=== PATIENT | female | born 1960 | race Caucasian/White ===

== ENCOUNTER 2016-09-30 21:33 | Emergency (ER) | payer OTHER ==
[2016-09-30] MEDS ORDERED: Albuterol/Ipratropium 3.0-0.5 MG/3 ML Neb Soln NEB ONE (21:52)
--- NOTE | 2016-09-30 21:59 | EDM.PDOC ---
ED HISTORY OF PRESENT ILLNESS - General Stated Complaint: Cough Time Seen by Provider: 09/30/16 21:51 Source of Information: Reports: Patient History Limitations: Reports: No limitations - History of Present Illness INITIAL COMMENTS - FREE TEXT/NARRATIVE: Patient states that she has had a cough for the past 3 months that is not improving. She is an everyday smoker and has been for more than 40 years. She denies fever, chills, SOB, and chest pain. She is also complaining of depression and is tearful during conversations with her about why. She states her boyfriend who was the love of her life two weeks ago. She has not really spoken to anyone about this. She denies wanting to hurt herself or anyone else. She states that she has chronic depression but doesn't see anyone for this. 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 - Related Data Allergies/ADRs: Allergies Allergy/AdvReac Type Severity Reaction Status Date / Time No Known Allergies Allergy Verified 02/11/16 05:58 Home Meds: Home Meds Albuterol/Ipratropium [Combivent Respimat] 4 gm IH ASDIRECTED PRN 02/11/16 [ History] Ciprofloxacin [Ciprofloxacin HCl] 500 mg PO BID #20 tablet 02/11/16 [Rx] Past Medical History Respiratory History: Reports: COPD Genitourinary History: Reports: UTI, recurrent Social & Family History - Tobacco Use Smoking Status *Q: Current Every Day Smoker Tobacco Use Within Last Twelve Months: Cigarettes Years of Tobacco use: 43 Packs/Tins Daily: 1 Smoking Cessation Information Provided To Patient: Patient Refused - Alcohol Use Days Per Week of Alcohol Use: 4 Number of Drinks Per Day: 4 Total Drinks Per Week: 16 Date of Last Drink: 09/30/16 Time of Last Drink: 21:00 Alcohol Use in Last Twelve Months: Yes Alcohol Use Frequency: Daily ED ROS GENERAL - Review of Systems Review Of Systems: ROS reveals no pertinent complaints other than HPI. Constitutional: Reports: no symptoms HEENT: Reports: No symptoms Respiratory: Reports: wheezing, cough, sputum Cardiovascular: Reports: No symptoms Endocrine: Reports: fatigue GI/Abdominal: Reports: No symptoms : Reports: no symptoms Musculoskeletal: Reports: no symptoms Skin: Reports: no symptoms Neurological: Reports: no symptoms Psychiatric: Reports: Depression Hematologic/Lymphatic: Reports: no symptoms Immunologic: Reports: no symptoms ED EXAM, GENERAL - Physical Exam Exam: See Below Exam Limited By: No limitations General Appearance: alert, WD/WN, mild distress (sad and tearful) Head: atraumatic, normocephalic Neck: normal inspection, supple, non-tender, full range of motion Respiratory/Chest: no respiratory distress, no accessory muscle use, chest non- tender, crackles, wheezing, prolonged expiration Cardiovascular: normal peripheral pulses, regular rate, rhythm, no edema, no murmur, no rub GI/Abdominal: normal bowel sounds, soft, non tender, no distention Back Exam: normal inspection Extremities: normal inspection, no pedal edema, normal capillary refill Neurological: alert, oriented, normal cognition Psychiatric: depressed mood, tearful Skin Exam: Warm, Dry, Intact, Normal color, No rash Lymphatic: no adenopathy ED RESPIRATORY PROCEDURES - Additional/Other Procedure(s) Other (Free Text) Procedure(s): CXR shows no pneumonia or other worrisome findings. Course - Orders/Labs/Meds Orders: Active Orders 24 hr Category Date Time Status RT Aerosol Therapy [RC] ASDIRECTED Care 09/30/16 21:52 Ordered CXR [Chest 2V] [CR] Stat Exams 09/30/16 21:52 Ordered Meds: Medications Discontinued Medications Generic Name Dose Route Start Last Admin Trade Name Stephanie PRN Reason Stop Dose Admin Albuterol/Ipratropium 3 ml 09/30/16 21:52 Duoneb 3.0-0.5 Mg/3 Ml NEB 09/30/16 21:53 ONETIME ONE - Re-Assessments/Exams Free Text/Narrative Re-Assessment/Exam: 09/30/16 22:11 Lung sounds clear bilaterally A&P throughout all lung villanueva after nebulizer treatment. Departure - Departure Time of Disposition: 22:20 Disposition: Home, Self-Care 01 Condition: good Clinical Impression: Cough in adult Instructions: Smoking Cessation, Tips for Success, [id number]-[id number] Additional Instructions: Follow up with your primary care provider for further treatment and management of your depression. Quit smoking. Do not drink alcohol if you struggle with depression as this will make the condition worse and much harder to treat and manage. - My Orders Last 24 Hours: My Active Orders 09/30/16 21:52 RT Aerosol Therapy [RC] ASDIRECTED CXR [Chest 2V] [CR] Stat - Assessment/Plan Last 24 Hours: My Active Orders 09/30/16 21:52 RT Aerosol Therapy [RC] ASDIRECTED CXR [Chest 2V] [CR] Stat Assessment:: Cough/chronic bronchitis Plan: Follow up with your primary care provider for further treatment and management of your depression. Quit smoking. Do not drink alcohol if you struggle with depression as this will make the condition worse and much harder to treat and manage.
[2016-09-30 23:04] VITALS: BP 102/64
== END 2016-09-30 22:35 | disposition home or self-care (01) ==
LOC: VM.ED 21:33
DX: R05 Cough (principal); J44.9 Chronic obstructive pulmonary disease, unspecified; F17.210 Nicotine dependence, cigarettes, uncomplicated
CPT/HCPCS: 71020; 94640; 99284

== ENCOUNTER 2017-05-03 15:31 | Emergency (ER) | payer MEDICAID, OTHER ==
[2017-05-03] MEDS ORDERED: LORazepam 2 MG/ML SDV IVPUSH ONE (15:49)
[2017-05-03] MEDS ORDERED: Sodium Chloride 0.9% 10 ML Syringe FLUSH PRN (15:49)
[2017-05-03] MEDS ORDERED: Sodium Chloride 0.9% 1,000 ML IV ONE (15:49)
--- NOTE | 2017-05-03 16:00 | EDM.PDOC ---
ED HPI GENERAL MEDICAL PROBLEM - General Chief Complaint: Chest Pain Stated Complaint: chest pain Time Seen by Provider: 05/03/17 15:45 Source of Information: Reports: Patient, EMS History Limitations: Reports: No Limitations - History of Present Illness INITIAL COMMENTS - FREE TEXT/NARRATIVE: Patient arrives with sudden onset of right sided chest pain that worsens on palpation. She is brought in via ambulance. Denies SOB, any LOC. She denies nausea, vomiting, blood in urine or stools. Has long standing history of anxiety. Smokes 1/2 PPD. History of alcoholism. Onset: Today, Sudden Duration: Intermittent Location: Reports: Chest Quality: Reports: Ache Severity: Moderate Improves with: Reports: None Worsens with: Reports: Movement Associated Symptoms: Reports: Chest Pain Right Chest Pain Score (Numeric/FACES): 2 - Related Data Allergies Allergy/AdvReac Type Severity Reaction Status Date / Time codeine Allergy Nausea and Verified 05/03/17 15:43 Vomiting lidocaine Allergy Swelling Verified 05/03/17 15:43 Home Meds: Home Meds . [No Known Home Meds] 09/30/16 [History] Past Medical History Respiratory History: Reports: COPD Genitourinary History: Reports: UTI, Recurrent Psychiatric History: Reports: Anxiety, Depression, PTSD Social & Family History - Family History Family Medical History: Noncontributory - Tobacco Use Smoking Status *Q: Current Every Day Smoker Years of Tobacco use: 45 Packs/Tins Daily: 0.5 - Caffeine Use Caffeine Use: Reports: Soda - Alcohol Use Days Per Week of Alcohol Use: 4 Number of Drinks Per Day: 4 Total Drinks Per Week: 16 - Recreational Drug Use Recreational Drug Use: No ED ROS GENERAL - Review of Systems Review Of Systems: See Below Constitutional: Reports: No Symptoms HEENT: Reports: No Symptoms Respiratory: Reports: No Symptoms Cardiovascular: Reports: Chest Pain Endocrine: Reports: No Symptoms GI/Abdominal: Reports: No Symptoms : Reports: No Symptoms Musculoskeletal: Reports: No Symptoms Skin: Reports: No Symptoms Neurological: Reports: No Symptoms Psychiatric: Reports: No Symptoms Hematologic/Lymphatic: Reports: No Symptoms Immunologic: Reports: No Symptoms ED EXAM, GENERAL - Physical Exam Exam: See Below Exam Limited By: No Limitations General Appearance: Alert, WD/WN, Moderate Distress Eye Exam: Bilateral Eye: EOMI, PERRL Ears: Normal TMs Nose: Normal Inspection, Normal Mucosa, No Blood Throat/Mouth: Normal Inspection, Normal Lips, Normal Teeth, Normal Gums, Normal Oropharynx, Normal Voice, No Airway Compromise Head: Atraumatic, Normocephalic Neck: Normal Inspection, Supple, Non-Tender, Full Range of Motion Respiratory/Chest: No Respiratory Distress, Lungs Clear, Normal Breath Sounds, No Accessory Muscle Use, Chest Non-Tender Cardiovascular: Normal Peripheral Pulses, Regular Rate, Rhythm, No Edema, No Gallop, No JVD, No Murmur, No Rub GI/Abdominal: Normal Bowel Sounds, Soft, Non-Tender, No Organomegaly, No Distention, No Abnormal Bruit, No Mass Extremities: Normal Inspection, Normal Range of Motion, Non-Tender, Normal Capillary Refill, No Pedal Edema Neurological: Alert, Oriented, CN II-XII Intact, Normal Cognition, Normal Gait, Normal Reflexes, No Motor/Sensory Deficits Psychiatric: Normal Affect, Normal Mood Skin Exam: Warm, Dry, Intact, Normal Color, No Rash Lymphatic: No Adenopathy EKG INTERPRETATION EKG Date: 05/03/17 Time: 15:39 Rhythm: NSR Rate (Beats/Min): 81 [place]: Normal P-Wave: Present QRS: Normal ST-T: Normal QT: Normal Comparison: NA - No Prior EKG Course - Vital Signs Last Recorded V/S: Last Vital Signs Temp 36.1 C 05/03/17 18:39 Pulse 73 05/03/17 18:39 Resp 18 05/03/17 18:39 BP 118/74 05/03/17 18:39 Pulse Ox 99 05/03/17 18:39 - Orders/Labs/Meds Orders: Active Orders 24 hr Category Date Time Status EKG Documentation Completion [RC] ROUTINE Care 05/03/17 15:49 Ordered Chest 1V Frontal [CR] Stat Exams 05/03/17 15:49 Taken Chest PE [Ang Chest] [CT] Stat Exams 05/03/17 17:14 Taken Saline Lock Insert [OM.PC] Routine Oth 05/03/17 15:49 Ordered Labs: Laboratory Tests 05/03/17 05/03/17 05/03/17 Range/Units 16:00 16:15 16:15 WBC 7.9 (4.0-10.0) x10^3/uL RBC 4.29 (4.00-5.50) x10^6/uL Hgb 14.1 (12.0-16.0) g/dL Hct 40.2 (33.0-47.0) % MCV 93.7 H (78.0-93.0) fL MCH 32.9 H (26.0-32.0) pg MCHC 35.1 (32.0-36.0) g/dL RDW Coeff of Crys 13.1 (10.0-15.0) % Plt Count 261 (130-400) x10^3/uL Neut % (Auto) 67.0 (50.0-80.0) % Lymph % (Auto) 24.3 L (25.0-50.0) % Wilkin % (Auto) 6.6 (2.0-11.0) % Eos % (Auto) 1.6 (0.0-4.0) % Baso % (Auto) 0.5 (0.2-1.2) % PT 10.0 (9.8-11.8) SEC INR 0.9 L (2.0-3.5) D-Dimer, Quantitative (<=0.58) mg/LFEU Sodium (136-145) mmol/L Potassium (3.5-5.1) mmol/L Chloride (98-107) mmol/L Carbon Dioxide (21-32) mmol/L BUN (7-18) mg/dL Creatinine (0.55-1.02) mg/dL Est Cr Clr Drug Dosing mL/min Estimated GFR (MDRD) Glucose (74-106) mg/dL Lactic Acid (0.4-2.0) mmol/L Calcium (8.5-10.1) mg/dL Corrected Calcium (8.5-10.1) mg/dL Total Bilirubin (0.2-1.0) mg/dL AST (15-37) U/L ALT (14-59) U/L Alkaline Phosphatase (46-116) U/L Creatine Kinase (26-192) U/L Creatine Kinase Index CK-MB (CK-2) Troponin I (<=0.056) ng/mL C-Reactive Protein (<=0.9) mg/dL NT-Pro-B Natriuret Pep (<=125) pg/mL Total Protein (6.4-8.2) g/dL Albumin (3.4-5.0) g/dL Globulin Albumin/Globulin Ratio TSH, Ultra Sensitive (0.358-3.74) uIU/mL Urine Color Yellow (YELLOW) Urine Appearance Slightly cloudy H (CLEAR) Urine pH 9.0 H (5.0-8.0) Ur Specific Grimsley 1.015 Urine Protein 30 H (NEGATIVE) mg/dL Urine Glucose (UA) Negative (NEGATIVE) mg/dL Urine Ketones Trace H (NEGATIVE) mg/dL Urine Occult Blood Negative (NEGATIVE) Urine Nitrite Negative (NEGATIVE) Urine Bilirubin Small H (NEGATIVE) Urine Urobilinogen 2.0 H (0.2) EU/dL Ur Leukocyte Esterase Negative (NEGATIVE) Urine RBC 0-5 (NOT SEEN) /HPF Urine WBC 0-5 (NOT SEEN) /HPF Ur Squamous Epith Cells Few H (NEGATIVE) /HPF Urine Bacteria Few H (NEGATIVE) /HPF Urine Mucus Rare H (NEGATIVE) /LPF 05/03/17 05/03/17 05/03/17 Range/Units 16:15 16:15 16:15 WBC (4.0-10.0) x10^3/uL RBC (4.00-5.50) x10^6/uL Hgb (12.0-16.0) g/dL Hct (33.0-47.0) % MCV (78.0-93.0) fL MCH (26.0-32.0) pg MCHC (32.0-36.0) g/dL RDW Coeff of Crys (10.0-15.0) % Plt Count (130-400) x10^3/uL Neut % (Auto) (50.0-80.0) % Lymph % (Auto) (25.0-50.0) % Wilkin % (Auto) (2.0-11.0) % Eos % (Auto) (0.0-4.0) % Baso % (Auto) (0.2-1.2) % PT (9.8-11.8) SEC INR (2.0-3.5) D-Dimer, Quantitative 1.39 H (<=0.58) mg/LFEU Sodium 136 (136-145) mmol/L Potassium 3.1 L (3.5-5.1) mmol/L Chloride 98 (98-107) mmol/L Carbon Dioxide 27 (21-32) mmol/L BUN 10 (7-18) mg/dL Creatinine 0.7 (0.55-1.02) mg/dL Est Cr Clr Drug Dosing 66.91 mL/min Estimated GFR (MDRD) > 60 Glucose 117 H (74-106) mg/dL Lactic Acid 2.1 H (0.4-2.0) mmol/L Calcium 9.5 (8.5-10.1) mg/dL Corrected Calcium 9.90 (8.5-10.1) mg/dL Total Bilirubin 0.8 (0.2-1.0) mg/dL AST 61 H (15-37) U/L ALT 89 H (14-59) U/L Alkaline Phosphatase 95 (46-116) U/L Creatine Kinase 51 (26-192) U/L Creatine Kinase Index TNP CK-MB (CK-2) TNP Troponin I < 0.017 (<=0.056) ng/mL C-Reactive Protein (<=0.9) mg/dL NT-Pro-B Natriuret Pep 66 (<=125) pg/mL Total Protein 6.5 (6.4-8.2) g/dL Albumin 3.5 (3.4-5.0) g/dL Globulin 3.0 Albumin/Globulin Ratio 1.17 TSH, Ultra Sensitive 1.411 (0.358-3.74) uIU/mL Urine Color (YELLOW) Urine Appearance (CLEAR) Urine pH (5.0-8.0) Ur Specific [place] Urine Protein (NEGATIVE) mg/dL Urine Glucose (UA) (NEGATIVE) mg/dL Urine Ketones (NEGATIVE) mg/dL Urine Occult Blood (NEGATIVE) Urine Nitrite (NEGATIVE) Urine Bilirubin (NEGATIVE) Urine Urobilinogen (0.2) EU/dL Ur Leukocyte Esterase (NEGATIVE) Urine RBC (NOT SEEN) /HPF Urine WBC (NOT SEEN) /HPF Ur Squamous Epith Cells (NEGATIVE) /HPF Urine Bacteria (NEGATIVE) /HPF Urine Mucus (NEGATIVE) /LPF 05/03/17 Range/Units 16:15 WBC (4.0-10.0) x10^3/uL RBC (4.00-5.50) x10^6/uL Hgb (12.0-16.0) g/dL Hct (33.0-47.0) % MCV (78.0-93.0) fL MCH (26.0-32.0) pg MCHC (32.0-36.0) g/dL RDW Coeff of Crys (10.0-15.0) % Plt Count (130-400) x10^3/uL Neut % (Auto) (50.0-80.0) % Lymph % (Auto) (25.0-50.0) % Wilkin % (Auto) (2.0-11.0) % Eos % (Auto) (0.0-4.0) % Baso % (Auto) (0.2-1.2) % PT (9.8-11.8) SEC INR (2.0-3.5) D-Dimer, Quantitative (<=0.58) mg/LFEU Sodium (136-145) mmol/L Potassium (3.5-5.1) mmol/L Chloride (98-107) mmol/L Carbon Dioxide (21-32) mmol/L BUN (7-18) mg/dL Creatinine (0.55-1.02) mg/dL Est Cr Clr Drug Dosing mL/min Estimated GFR (MDRD) Glucose (74-106) mg/dL Lactic Acid (0.4-2.0) mmol/L Calcium (8.5-10.1) mg/dL Corrected Calcium (8.5-10.1) mg/dL Total Bilirubin (0.2-1.0) mg/dL AST (15-37) U/L ALT (14-59) U/L Alkaline Phosphatase (46-116) U/L Creatine Kinase (26-192) U/L Creatine Kinase Index CK-MB (CK-2) Troponin I (<=0.056) ng/mL C-Reactive Protein 0.7 (<=0.9) mg/dL NT-Pro-B Natriuret Pep (<=125) pg/mL Total Protein (6.4-8.2) g/dL Albumin (3.4-5.0) g/dL Globulin Albumin/Globulin Ratio TSH, Ultra Sensitive (0.358-3.74) uIU/mL Urine Color (YELLOW) Urine Appearance (CLEAR) Urine pH (5.0-8.0) Ur Specific [place] Urine Protein (NEGATIVE) mg/dL Urine Glucose (UA) (NEGATIVE) mg/dL Urine Ketones (NEGATIVE) mg/dL Urine Occult Blood (NEGATIVE) Urine Nitrite (NEGATIVE) Urine Bilirubin (NEGATIVE) Urine Urobilinogen (0.2) EU/dL Ur Leukocyte Esterase (NEGATIVE) Urine RBC (NOT SEEN) /HPF Urine WBC (NOT SEEN) /HPF Ur Squamous Epith Cells (NEGATIVE) /HPF Urine Bacteria (NEGATIVE) /HPF Urine Mucus (NEGATIVE) /LPF Meds: Medications Discontinued Medications Generic Name Dose Route Start Last Admin Trade Name Freq PRN Reason Stop Dose Admin Sodium Chloride 1,000 mls @ 999 mls/hr 05/03/17 15:49 05/03/17 16:03 Normal Saline IV 05/03/17 16:49 999 mls/hr ONETIME ONE Administration Sodium Chloride 100 mls @ 3 mls/sec 05/03/17 18:00 05/03/17 18:05 Normal Saline IV 3 mls/sec ASDIRECTED MARCELLO Administration Iopamidol 100 ml 05/03/17 17:50 05/03/17 18:05 Isovue-300 (61%) IVPUSH 05/03/17 17:51 100 ml ONETIME ONE Administration Lorazepam 0.5 mg 05/03/17 15:49 05/03/17 16:03 Ativan IVPUSH 05/03/17 15:50 0.5 mg ONETIME ONE Administration Sodium Chloride 10 ml 05/03/17 15:49 Saline Flush FLUSH ASDIRECTED PRN Keep Vein Open - Re-Assessments/Exams Free Text/Narrative Re-Assessment/Exam: 05/03/17 22:41 Patient discharged with anxiety related diagnosis. D-Dimer elevated, chronic smoker, alcoholic. No history of cardiac related illnesses. No prior CVA. Departure - Departure Time of Disposition: 19:30 Disposition: Home, Self-Care 01 Condition: Good Clinical Impression: Atypical chest pain, Costochondral chest pain, Cough in adult Instructions: Nonspecific Chest Pain, [id number] Referrals: Sb Bell PA-C [Primary Care Provider] - Forms: ED Department Discharge Additional Instructions: Follow up with your primary doctor as needed for symptom management. Stay well hydrated. Your labwork and diagnostic tests were negative for any acute illness. Visit with your provider as to whether or not you need some medication for anxiety and/or depression. This does appear to be a muscular complaint. Try a heating pad, soak in a warm bath, taking ibuprofen or tylenol. - Problem List & Annotations (1) Atypical chest pain SNOMED Code(s): 708030274 Code(s): R07.89 - OTHER CHEST PAIN Status: Acute Priority: Low (2) Costochondral chest pain SNOMED Code(s): 740913748 Code(s): R07.1 - CHEST PAIN ON BREATHING Status: Acute Priority: Low - Problem List Review Problem List Initiated/Reviewed/Updated: Yes - My Orders Last 24 Hours: My Active Orders 05/03/17 15:49 EKG Documentation Completion [RC] ROUTINE Chest 1V Frontal [CR] Stat Saline Lock Insert [OM.PC] Routine 05/03/17 17:14 Chest PE [Ang Chest] [CT] Stat - Assessment/Plan Last 24 Hours: My Active Orders 05/03/17 15:49 EKG Documentation Completion [RC] ROUTINE Chest 1V Frontal [CR] Stat Saline Lock Insert [OM.PC] Routine 05/03/17 17:14 Chest PE [Ang Chest] [CT] Stat Assessment:: costochondritis atypical chest pain Plan: Follow up with your primary doctor as needed for symptom management. Stay well hydrated. Your labwork and diagnostic tests were negative for any acute illness. Visit with your provider as to whether or not you need some medication for anxiety and/or depression. This does appear to be a muscular complaint. Try a heating pad, soak in a warm bath, taking ibuprofen or tylenol.
[2017-05-03 16:58] LABS: CHLORIDE,CL 98 mmol/L (98-107); SODIUM,NA 136 mmol/L (136-145)
[2017-05-03] MEDS ORDERED: Iopamidol 612 MG/ML 100 ML Bottle IVPUSH ONE (17:50)
[2017-05-03] MEDS ORDERED: Sodium Chloride 0.9% 100 ML IV SCH (18:00)
== END 2017-05-03 19:35 | disposition home or self-care (01) ==
LOC: VM.ED 15:31
DX: R07.1 Chest pain on breathing (principal); R05 Cough; F17.210 Nicotine dependence, cigarettes, uncomplicated; J44.9 Chronic obstructive pulmonary disease, unspecified; F32.9 Major depressive disorder, single episode, unspecified; Z88.5 Allergy status to narcotic agent; Z88.6 Allergy status to analgesic agent
CPT/HCPCS: 36415; 71010; 71275; 80053; 81001; 82550; 83605; 83880; 84443; 84484; 85025; 85379; 85610; 86140; 93005; 96361; 96374; 99285; J2060; J7030; J7050; Q9967

== ENCOUNTER 2018-01-20 22:38 | Emergency (ER) | payer MEDICAID | END 2018-01-20 22:50 | disposition left against medical advice (07) | LOC: VM.ED 22:38 | DX: Z53.21 Procedure and treatment not carried out due to patient leaving prior to being seen by health care provider (principal) ==

== ENCOUNTER 2018-03-04 02:40 | Observation (INO) | payer MEDICAID ==
[2018-03-04] MEDS ORDERED: Sodium Chloride 0.9% 10 ML Syringe FLUSH PRN (03:22)
[2018-03-04] MEDS ORDERED: Sodium Chloride 0.9% 1,000 ML IV SCH (03:30)
[2018-03-04 04:03] LABS: CHLORIDE,CL 109 mmol/L (98-107); SODIUM,NA 145 mmol/L (136-145)
[2018-03-04] MEDS ORDERED: Nitrofurantoin Monohydrate/Macrocrystalline 100 MG Cap PO ONE (04:03)
[2018-03-04 04:04] LABS: ANION GAP 17.7 mmol/L (10-20)
[2018-03-04] MEDS ORDERED: Iopamidol 612 MG/ML 100 ML Bottle IVPUSH ONE (04:17)
--- NOTE | 2018-03-04 04:23 | EDM.PDOC ---
ED HPI GENERAL MEDICAL PROBLEM - General Chief Complaint: Abdominal Pain Stated Complaint: Left groin pain Time Seen by Provider: 03/04/18 03:17 Source of Information: Reports: Patient, EMS History Limitations: Reports: No Limitations - History of Present Illness INITIAL COMMENTS - FREE TEXT/NARRATIVE: Patient is brought in this morning via EMS with complaints of lower left abdominal pain and diarrhea. She states the abdominal pain started on Friday after she was moving a couch and has only become worse. Rates pain a 9/10. Pain increases with movement and palpation. She has been drinking this evening. She denies headache, chest pain, chest pressure, blood in urine or stool. She denies any problems with bowel or bladder. She states she had 4 drinks tonight. Onset: Gradual Onset Date: 02/28/18 Duration: Getting Worse Location: Reports: Abdomen, Lower Extremity, Left Quality: Reports: Ache, Stabbing Severity: Mild Worsens with: Reports: Movement Associated Symptoms: Reports: No Other Symptoms left groin Pain Score (Numeric/FACES): 3 Low mid abdomen Pain Score (Numeric/FACES): 5 - Related Data Allergies Allergy/AdvReac Type Severity Reaction Status Date / Time codeine Allergy Nausea and Verified 03/04/18 02:51 Vomiting lidocaine Allergy Swelling Verified 03/04/18 02:51 Home Meds: Home Meds ClonazePAM [KlonoPIN] 0.5 mg PO BID PRN 03/04/18 [History] Past Medical History Respiratory History: Reports: COPD Genitourinary History: Reports: UTI, Recurrent Psychiatric History: Reports: Anxiety, Depression, PTSD Social & Family History - Family History Family Medical History: Noncontributory - Caffeine Use Caffeine Use: Reports: Soda ED ROS GENERAL - Review of Systems Review Of Systems: See Below Constitutional: Reports: No Symptoms HEENT: Reports: No Symptoms Respiratory: Reports: No Symptoms Cardiovascular: Reports: No Symptoms Endocrine: Reports: No Symptoms GI/Abdominal: Reports: Abdominal Pain, Diarrhea : Reports: No Symptoms Musculoskeletal: Reports: No Symptoms, Leg Pain (right) Skin: Reports: Wound Neurological: Reports: No Symptoms Psychiatric: Reports: No Symptoms Hematologic/Lymphatic: Reports: No Symptoms Immunologic: Reports: No Symptoms ED EXAM, GI/ABD - Physical Exam Exam: See Below Text/Narrative:: Please use ER history and physical for admission H and P Exam Limited By: No Limitations General Appearance: Alert, WD/WN, Mild Distress Eyes: Bilateral: Erythema Ears: Normal External Exam, Normal Canal, Hearing Grossly Normal, Normal TMs Nose: Normal Inspection, Normal Mucosa, No Blood Throat/Mouth: Normal Inspection, Normal Lips, Normal Teeth, Normal Gums, Normal Oropharynx, Normal Voice, No Airway Compromise Head: Atraumatic, Normocephalic Neck: Normal Inspection, Supple, Non-Tender, Full Range of Motion Respiratory/Chest: No Respiratory Distress, Lungs Clear, Normal Breath Sounds, No Accessory Muscle Use, Chest Non-Tender Cardiovascular: Normal Peripheral Pulses, Regular Rate, Rhythm, No Edema, No Gallop, No JVD, No Murmur, No Rub GI/Abdominal Exam: Tender Back Exam: Normal Inspection, Full Range of Motion, NT Extremities: Normal Inspection, Normal Range of Motion, Non-Tender, Normal Capillary Refill, No Pedal Edema Neurological: Alert, Oriented, CN II-XII Intact, Normal Cognition, Normal Gait, Normal Reflexes, No Motor/Sensory Deficits Psychiatric: Normal Affect, Normal Mood Skin Exam: Warm Lymphatic: No Adenopathy Course - Vital Signs Last Recorded V/S: Last Vital Signs Temp 37.4 C 03/04/18 05:43 Pulse 100 03/04/18 05:43 Resp 16 03/04/18 05:43 BP 107/69 03/04/18 05:43 Pulse Ox 95 03/04/18 05:43 - Orders/Labs/Meds Orders: Active Orders 24 hr Category Date Time Status Abdomen Pelvis w Cont [CT] Stat Exams 03/04/18 03:29 Taken DRUG SCREEN, URINE [URCHEM] Stat Lab 03/04/18 03:45 Ordered MISC TEST Stat Lab 03/04/18 03:45 Received UA W/MICROSCOPIC [URIN] Stat Lab 03/04/18 03:45 Ordered D5 1/2 NS w/ 40 mEq/L KCl 1,000 ml Med 03/04/18 04:30 Active IV ASDIRECTED Sodium Chloride 0.9% [Normal Saline] 1,000 ml Med 03/04/18 03:30 Active IV ASDIRECTED Sodium Chloride 0.9% [Saline Flush] Med 03/04/18 03:22 Active 10 ml FLUSH ASDIRECTED PRN Saline Lock Insert [OM.PC] Routine Oth 03/04/18 03:22 Ordered Medication Orders Sodium Chloride (Normal Saline) 1,000 mls @ 999 mls/hr IV ASDIRECTED MARCELLO Last Admin: 03/04/18 03:30 Dose: 999 mls/hr Potassium Chloride/Dextrose/Sod Cl (D5 1/2 Ns W/ 40 Meq/L Kcl) 1,000 mls @ 225 mls/hr IV ASDIRECTED MARCELLO Last Admin: 03/04/18 04:58 Dose: 225 mls/hr Sodium Chloride (Saline Flush) 10 ml FLUSH ASDIRECTED PRN PRN Reason: Keep Vein Open Labs: Laboratory Tests 03/04/18 03/04/18 03/04/18 Range/Units 03:25 03:25 03:45 WBC 13.1 H (4.0-10.0) x10^3/uL RBC 4.83 (4.00-5.50) x10^6/uL Hgb 16.0 D (12.0-16.0) g/dL Hct 45.1 (33.0-47.0) % MCV 93.4 H (78.0-93.0) fL MCH 33.1 H (26.0-32.0) pg MCHC 35.5 (32.0-36.0) g/dL RDW Coeff of Crys 14.8 (10.0-15.0) % Plt Count 349 D (130-400) x10^3/uL Neut % (Auto) 68.6 (50.0-80.0) % Lymph % (Auto) 22.4 L (25.0-50.0) % [place]ue % (Auto) 6.0 (2.0-11.0) % Eos % (Auto) 2.8 (0.0-4.0) % Baso % (Auto) 0.2 (0.2-1.2) % Sodium 145 (136-145) mmol/L Potassium 2.7 L* (3.5-5.1) mmol/L Chloride 109 H (98-107) mmol/L Carbon Dioxide 21 (21-32) mmol/L Anion Gap 17.7 (10-20) mmol/L BUN 4 L (7-18) mg/dL Creatinine 0.6 (0.55-1.02) mg/dL Est Cr Clr Drug Dosing 77.12 mL/min Estimated GFR (MDRD) > 60 Glucose 122 H (74-106) mg/dL Calcium 9.1 (8.5-10.1) mg/dL Corrected Calcium 9.50 (8.5-10.1) mg/dL Total Bilirubin 0.5 (0.2-1.0) mg/dL AST 19 (15-37) U/L ALT 37 (14-59) U/L Alkaline Phosphatase 127 H (46-116) U/L Creatine Kinase 40 (26-192) U/L C-Reactive Protein 2.7 H (<=0.9) mg/dL Total Protein 7.3 (6.4-8.2) g/dL Albumin 3.5 (3.4-5.0) g/dL Globulin 3.8 Albumin/Globulin Ratio 0.92 Urine Color Yellow (YELLOW) Urine Appearance Turbid H (CLEAR) Urine pH 5.5 (5.0-8.0) Ur Specific Micro <=1.005 Urine Protein Negative (NEGATIVE) mg/dL Urine Glucose (UA) Negative (NEGATIVE) mg/dL Urine Ketones Negative (NEGATIVE) mg/dL Urine Occult Blood Negative (NEGATIVE) Urine Nitrite Positive H (NEGATIVE) Urine Bilirubin Negative (NEGATIVE) Urine Urobilinogen 1.0 (0.2) EU/dL Ur Leukocyte Esterase Small H (NEGATIVE) Urine RBC 0-5 (NOT SEEN) /HPF Urine WBC 5-10 H (NOT SEEN) /HPF Ur Squamous Epith Cells Moderate H (NEGATIVE) /HPF Urine Bacteria Many H (NEGATIVE) /HPF Hyaline Casts Few H (NEGATIVE) /HPF Urine Mucus Rare H (NEGATIVE) /LPF Urine Yeast (Budding) Few Urine Opiates Screen (NEGATIVE) Ur Buprenorphine Scrn (NEGATIVE) Ur Oxycodone Screen (NEGATIVE) Urine Methadone Screen (NEGATIVE) Ur Barbiturates Screen (NEGATIVE) Ur Tricyclics Screen (NEGATIVE) Ur Amphetamine Screen (NEGATIVE) U Methamphetamines Scrn (NEGATIVE) Urine MDMA Screen (NEGATIVE) U Benzodiazepines Scrn (NEGATIVE) U Cocaine Metab Screen (NEGATIVE) U Marijuana (THC) Screen (NEGATIVE) Ethyl Alcohol 173 H (0-3) mg/dL 03/04/18 Range/Units 03:45 WBC (4.0-10.0) x10^3/uL RBC (4.00-5.50) x10^6/uL Hgb (12.0-16.0) g/dL Hct (33.0-47.0) % MCV (78.0-93.0) fL MCH (26.0-32.0) pg MCHC (32.0-36.0) g/dL RDW Coeff of Crys (10.0-15.0) % Plt Count (130-400) x10^3/uL Neut % (Auto) (50.0-80.0) % Lymph % (Auto) (25.0-50.0) % [place] % (Auto) (2.0-11.0) % Eos % (Auto) (0.0-4.0) % Baso % (Auto) (0.2-1.2) % Sodium (136-145) mmol/L Potassium (3.5-5.1) mmol/L Chloride (98-107) mmol/L Carbon Dioxide (21-32) mmol/L Anion Gap (10-20) mmol/L BUN (7-18) mg/dL Creatinine (0.55-1.02) mg/dL Est Cr Clr Drug Dosing mL/min Estimated GFR (MDRD) Glucose (74-106) mg/dL Calcium (8.5-10.1) mg/dL Corrected Calcium (8.5-10.1) mg/dL Total Bilirubin (0.2-1.0) mg/dL AST (15-37) U/L ALT (14-59) U/L Alkaline Phosphatase (46-116) U/L Creatine Kinase (26-192) U/L C-Reactive Protein (<=0.9) mg/dL Total Protein (6.4-8.2) g/dL Albumin (3.4-5.0) g/dL Globulin Albumin/Globulin Ratio Urine Color (YELLOW) Urine Appearance (CLEAR) Urine pH (5.0-8.0) Ur Specific Micro Urine Protein (NEGATIVE) mg/dL Urine Glucose (UA) (NEGATIVE) mg/dL Urine Ketones (NEGATIVE) mg/dL Urine Occult Blood (NEGATIVE) Urine Nitrite (NEGATIVE) Urine Bilirubin (NEGATIVE) Urine Urobilinogen (0.2) EU/dL Ur Leukocyte Esterase (NEGATIVE) Urine RBC (NOT SEEN) /HPF Urine WBC (NOT SEEN) /HPF Ur Squamous Epith Cells (NEGATIVE) /HPF Urine Bacteria (NEGATIVE) /HPF Hyaline Casts (NEGATIVE) /HPF Urine Mucus (NEGATIVE) /LPF Urine Yeast (Budding) Urine Opiates Screen Negative (NEGATIVE) Ur Buprenorphine Scrn Negative (NEGATIVE) Ur Oxycodone Screen Negative (NEGATIVE) Urine Methadone Screen Negative (NEGATIVE) Ur Barbiturates Screen Negative (NEGATIVE) Ur Tricyclics Screen Negative (NEGATIVE) Ur Amphetamine Screen Negative (NEGATIVE) U Methamphetamines Scrn Negative (NEGATIVE) Urine MDMA Screen Negative (NEGATIVE) U Benzodiazepines Scrn Negative (NEGATIVE) U Cocaine Metab Screen Negative (NEGATIVE) U Marijuana (THC) Screen Positive H (NEGATIVE) Ethyl Alcohol (0-3) mg/dL Meds: Medications Generic Name Dose Route Start Last Admin Trade Name Freq PRN Reason Stop Dose Admin Sodium Chloride 1,000 mls @ 999 mls/hr 03/04/18 03:30 03/04/18 03:30 Normal Saline IV 999 mls/hr ASDIRECTED MARCELLO Administration Potassium Chloride/Dextrose/Sod Cl 1,000 mls @ 225 mls/hr 03/04/18 04:30 04:58 D5 1/2 Ns W/ 40 Meq/L Kcl IV 225 mls/hr ASDIRECTED MARCELLO Administration Sodium Chloride 10 ml 03/04/18 03:22 Saline Flush FLUSH ASDIRECTED PRN Keep Vein Open Discontinued Medications Generic Name Dose Route Start Last Admin Trade Name Freq PRN Reason Stop Dose Admin Acetaminophen 1,000 mg 03/04/18 04:49 03/04/18 04:53 Tylenol Extra Strength PO 03/04/18 04:50 1,000 mg ONETIME ONE Administration Iopamidol 100 ml 03/04/18 04:17 03/04/18 04:41 Isovue-300 (61%) IVPUSH 03/04/18 04:18 100 ml ONETIME ONE Administration Ketorolac Tromethamine 15 mg 03/04/18 05:35 03/04/18 05:42 Toradol IVPUSH 03/04/18 05:36 15 mg ONETIME ONE Administration Nitrofurantoin Macrocrystals 100 mg 03/04/18 04:03 03/04/18 04:24 Macrobid PO 03/04/18 04:04 100 mg ONETIME ONE Administration Departure - Departure Time of Disposition: 05:50 Disposition: Refer to Observation Condition: Good Clinical Impression: Hypokalemia, Left inguinal hernia UTI (urinary tract infection) Qualifiers: Encounter type: initial encounter - Discharge Information *PRESCRIPTION DRUG MONITORING PROGRAM REVIEWED*: Not Applicable *COPY OF PRESCRIPTION DRUG MONITORING REPORT IN PATIENT SAMI: Not Applicable - Problem List & Annotations (1) Hypokalemia SNOMED Code(s): 70956284 Code(s): E87.6 - HYPOKALEMIA Status: Acute Priority: Medium Current Visit: Yes Annotation/Comment:: Patient will have potassium repletion with IV Potassium, repeat potassium after infusion is complete. (2) UTI (urinary tract infection) SNOMED Code(s): 92912823 Code(s): N39.0 - URINARY TRACT INFECTION, SITE NOT SPECIFIED Status: Acute Priority: Low Current Visit: Yes Annotation/Comment:: Start Macrobid BID Qualifiers: Encounter type: initial encounter (3) Left inguinal hernia SNOMED Code(s): 413721678 Code(s): K40.90 - UNIL INGUINAL HERNIA, W/O OBST OR GANGR, NOT SPCF RECUR Status: Acute Priority: Low Current Visit: Yes - Problem List Review Problem List Initiated/Reviewed/Updated: Yes - My Orders Last 24 Hours: My Active Orders 03/04/18 03:22 Sodium Chloride 0.9% [Saline Flush] 10 ml FLUSH ASDIRECTED PRN Saline Lock Insert [OM.PC] Routine 03/04/18 03:29 Abdomen Pelvis w Cont [CT] Stat 03/04/18 03:30 Sodium Chloride 0.9% [Normal Saline] 1,000 ml IV ASDIRECTED 03/04/18 03:45 DRUG SCREEN, URINE [URCHEM] Stat MISC TEST Stat UA W/MICROSCOPIC [URIN] Stat 03/04/18 04:30 D5 1/2 NS w/ 40 mEq/L KCl 1,000 ml IV ASDIRECTED - Assessment/Plan Last 24 Hours: My Active Orders 03/04/18 03:22 Sodium Chloride 0.9% [Saline Flush] 10 ml FLUSH ASDIRECTED PRN Saline Lock Insert [OM.PC] Routine 03/04/18 03:29 Abdomen Pelvis w Cont [CT] Stat 03/04/18 03:30 Sodium Chloride 0.9% [Normal Saline] 1,000 ml IV ASDIRECTED 03/04/18 03:45 DRUG SCREEN, URINE [URCHEM] Stat MISC TEST Stat UA W/MICROSCOPIC [URIN] Stat 03/04/18 04:30 D5 / NS w/ 40 mEq/L KCl 1,000 ml IV ASDIRECTED Assessment:: hypokalemia urinary tract infection Plan: Plan 1. hypokalemia - replace potassium with IV KCL, repeat potassium lab post infusion 2. urinary tract infection - UA does show leukocytes and nitrites. Start macrobid bid, fluids, culture Plan for discharge later in the AM
[2018-03-04] MEDS ORDERED: D5 1/2 NS w/ 40 mEq/L KCl 1,000 ML IV SCH (04:30)
[2018-03-04] MEDS ORDERED: Acetaminophen 500 MG Tab PO ONE (04:49)
[2018-03-04] MEDS ORDERED: Ketorolac 15 MG/ML SDV IVPUSH ONE (05:35)
[2018-03-04] MEDS ORDERED: Acetaminophen/HYDROcodone 325-10 MG Tab PO ONE (09:43)
[2018-03-04] MEDS ORDERED: Potassium Chloride 20 MEQ Tab.ER PO ONE (10:51)
--- NOTE | 2018-03-04 11:43 | PCM.DCSUM1 ---
Discharge Summary - Hospital Course HPI Initial Comments: Patient admitted observation for hypokalemia, UTI, and pain secondary to inguinal hernia to left side. Diagnosis: Stroke: No - Discharge Data Discharge Date: 03/04/18 Discharge Disposition: Home, Self-Care 01 Condition: Stable - Discharge Diagnosis/Problem(s) (1) Hypokalemia SNOMED Code(s): 57541373 ICD Code: E87.6 - HYPOKALEMIA Status: Acute Priority: Medium Current Visit: Yes Problem Details: Patient will have potassium repletion with IV Potassium, repeat potassium after infusion is complete. (2) UTI (urinary tract infection) SNOMED Code(s): 23583083 ICD Code: N39.0 - URINARY TRACT INFECTION, SITE NOT SPECIFIED Status: Acute Priority: Low Current Visit: Yes Problem Details: Start Macrobid BID Qualifiers: Encounter type: initial encounter (3) Left inguinal hernia SNOMED Code(s): 255473896 ICD Code: K40.90 - UNIL INGUINAL HERNIA, W/O OBST OR GANGR, NOT SPCF RECUR Status: Acute Priority: Low Current Visit: Yes - Patient Summary/Data Recommended Follow-up Testing/Procedures: Stay well hydrated. Avoid any heavy lifting or straining. You have a urinary tract infection and left sided inguinal hernia, your potassium is also low. I prescribed pain medication hydrocodone 10/325 mg 1 tab q 4 hours as needed for pain and macrobid, 1 tablet twice a day for 5 days Follow up with your primary care provider this week or early next week. You may need surgical consultation for your hernia due to the pain you are having and risk for ischemic bowel. Please call if you have any additional questions or concerns. - Patient Instructions Diet: Usual Diet as Tolerated Activity: No Lifting Over 10 Pounds Driving: May Drive Today Showering/Bathing: May Shower - Discharge Plan *PRESCRIPTION DRUG MONITORING PROGRAM REVIEWED*: Not Applicable *COPY OF PRESCRIPTION DRUG MONITORING REPORT IN PATIENT SAMI: Not Applicable Home Medications: Home Meds ClonazePAM [KlonoPIN] 0.5 mg PO BID PRN 03/04/18 [History] Forms: ED Department Discharge Referrals: PCP,Unobtain [Primary Care Provider] - - Patient Data Vitals - Most Recent: Last Vital Signs Temp 36.9 C 03/04/18 10:13 Pulse 78 08/15/18 10:13 Resp 16 03/04/18 10:13 BP 114/73 03/04/18 10:13 Pulse Ox 96 03/04/18 10:13 Weight - Most Recent: 56.132 kg I&O - Last 24 hours: Intake & Output 03/03/18 03/04/18 03/04/18 22:59 06:59 14:59 Intake Total 1000 0 Output Total 700 Balance 300 0 Lab Results - Last 24 hrs: Laboratory Results - last 24 hr 03/04/18 03/04/18 03/04/18 Range/Units 03:25 03:25 03:45 WBC 13.1 H (4.0-10.0) x10^3/uL RBC 4.83 (4.00-5.50) x10^6/uL Hgb 16.0 D (12.0-16.0) g/dL Hct 45.1 (33.0-47.0) % MCV 93.4 H (78.0-93.0) fL MCH 33.1 H (26.0-32.0) pg MCHC 35.5 (32.0-36.0) g/dL RDW Coeff of Crys 14.8 (10.0-15.0) % Plt Count 349 D (130-400) x10^3/uL Neut % (Auto) 68.6 (50.0-80.0) % Lymph % (Auto) 22.4 L (25.0-50.0) % [place] % (Auto) 6.0 (2.0-11.0) % Eos % (Auto) 2.8 (0.0-4.0) % Baso % (Auto) 0.2 (0.2-1.2) % Sodium 145 (136-145) mmol/L Potassium 2.7 L* (3.5-5.1) mmol/L Chloride 109 H (98-107) mmol/L Carbon Dioxide 21 (21-32) mmol/L Anion Gap 17.7 (10-20) mmol/L BUN 4 L (7-18) mg/dL Creatinine 0.6 (0.55-1.02) mg/dL Est Cr Clr Drug Dosing 77.12 mL/min Estimated GFR (MDRD) > 60 Glucose 122 H (74-106) mg/dL Calcium 9.1 (8.5-10.1) mg/dL Corrected Calcium 9.50 (8.5-10.1) mg/dL Total Bilirubin 0.5 (0.2-1.0) mg/dL AST 19 (15-37) U/L ALT 37 (14-59) U/L Alkaline Phosphatase 127 H (46-116) U/L Creatine Kinase 40 (26-192) U/L C-Reactive Protein 2.7 H (<=0.9) mg/dL Total Protein 7.3 (6.4-8.2) g/dL Albumin 3.5 (3.4-5.0) g/dL Globulin 3.8 Albumin/Globulin Ratio 0.92 Urine Color Yellow (YELLOW) Urine Appearance Turbid H (CLEAR) Urine pH 5.5 (5.0-8.0) Ur Specific [place] <=1.005 Urine Protein Negative (NEGATIVE) mg/dL Urine Glucose (UA) Negative (NEGATIVE) mg/dL Urine Ketones Negative (NEGATIVE) mg/dL Urine Occult Blood Negative (NEGATIVE) Urine Nitrite Positive H (NEGATIVE) Urine Bilirubin Negative (NEGATIVE) Urine Urobilinogen 1.0 (0.2) EU/dL Ur Leukocyte Esterase Small H (NEGATIVE) Urine RBC 0-5 (NOT SEEN) /HPF Urine WBC 5-10 H (NOT SEEN) /HPF Ur Squamous Epith Cells Moderate H (NEGATIVE) /HPF Urine Bacteria Many H (NEGATIVE) /HPF Hyaline Casts Few H (NEGATIVE) /HPF Urine Mucus Rare H (NEGATIVE) /LPF Urine Yeast (Budding) Few Urine Opiates Screen (NEGATIVE) Ur Buprenorphine Scrn (NEGATIVE) Ur Oxycodone Screen (NEGATIVE) Urine Methadone Screen (NEGATIVE) Ur Barbiturates Screen (NEGATIVE) Ur Tricyclics Screen (NEGATIVE) Ur Amphetamine Screen (NEGATIVE) U Methamphetamines Scrn (NEGATIVE) Urine MDMA Screen (NEGATIVE) U Benzodiazepines Scrn (NEGATIVE) U Cocaine Metab Screen (NEGATIVE) U Marijuana (THC) Screen (NEGATIVE) Ethyl Alcohol 173 H (0-3) mg/dL 03/04/18 03/04/18 Range/Units 03:45 09:37 WBC (4.0-10.0) x10^3/uL RBC (4.00-5.50) x10^6/uL Hgb (12.0-16.0) g/dL Hct (33.0-47.0) % MCV (78.0-93.0) fL MCH (26.0-32.0) pg MCHC (32.0-36.0) g/dL RDW Coeff of Crys (10.0-15.0) % Plt Count (130-400) x10^3/uL Neut % (Auto) (50.0-80.0) % Lymph % (Auto) (25.0-50.0) % [place] % (Auto) (2.0-11.0) % Eos % (Auto) (0.0-4.0) % Baso % (Auto) (0.2-1.2) % Sodium (136-145) mmol/L Potassium 4.0 (3.5-5.1) mmol/L Chloride (98-107) mmol/L Carbon Dioxide (21-32) mmol/L Anion Gap (10-20) mmol/L BUN (7-18) mg/dL Creatinine (0.55-1.02) mg/dL Est Cr Clr Drug Dosing mL/min Estimated GFR (MDRD) Glucose (74-106) mg/dL Calcium (8.5-10.1) mg/dL Corrected Calcium (8.5-10.1) mg/dL Total Bilirubin (0.2-1.0) mg/dL AST (15-37) U/L ALT (14-59) U/L Alkaline Phosphatase (46-116) U/L Creatine Kinase (26-192) U/L C-Reactive Protein (<=0.9) mg/dL Total Protein (6.4-8.2) g/dL Albumin (3.4-5.0) g/dL Globulin Albumin/Globulin Ratio Urine Color (YELLOW) Urine Appearance (CLEAR) Urine pH (5.0-8.0) Ur Specific [place] Urine Protein (NEGATIVE) mg/dL Urine Glucose (UA) (NEGATIVE) mg/dL Urine Ketones (NEGATIVE) mg/dL Urine Occult Blood (NEGATIVE) Urine Nitrite (NEGATIVE) Urine Bilirubin (NEGATIVE) Urine Urobilinogen (0.2) EU/dL Ur Leukocyte Esterase (NEGATIVE) Urine RBC (NOT SEEN) /HPF Urine WBC (NOT SEEN) /HPF Ur Squamous Epith Cells (NEGATIVE) /HPF Urine Bacteria (NEGATIVE) /HPF Hyaline Casts (NEGATIVE) /HPF Urine Mucus (NEGATIVE) /LPF Urine Yeast (Budding) Urine Opiates Screen Negative (NEGATIVE) Ur Buprenorphine Scrn Negative (NEGATIVE) Ur Oxycodone Screen Negative (NEGATIVE) Urine Methadone Screen Negative (NEGATIVE) Ur Barbiturates Screen Negative (NEGATIVE) Ur Tricyclics Screen Negative (NEGATIVE) Ur Amphetamine Screen Negative (NEGATIVE) U Methamphetamines Scrn Negative (NEGATIVE) Urine MDMA Screen Negative (NEGATIVE) U Benzodiazepines Scrn Negative (NEGATIVE) U Cocaine Metab Screen Negative (NEGATIVE) U Marijuana (THC) Screen Positive H (NEGATIVE) Ethyl Alcohol (0-3) mg/dL Med Orders - Current: Current Medications Sodium Chloride (Saline Flush) 10 ml FLUSH ASDIRECTED PRN PRN Reason: Keep Vein Open Discontinued Medications Acetaminophen (Tylenol Extra Strength) 1,000 mg PO ONETIME ONE Stop: 03/04/18 04:50 Last Admin: 03/04/18 04:53 Dose: 1,000 mg Hydrocodone Bitart/Acetaminophen ([place] 325-10 Mg) 1 tab PO ONETIME ONE Stop: 03/04/18 09:44 Last Admin: 03/04/18 10:30 Dose: 1 tab Sodium Chloride (Normal Saline) 1,000 mls @ 999 mls/hr IV ASDIRECTED [facility] Last Admin: 03/04/18 03:30 Dose: 999 mls/hr Potassium Chloride/Dextrose/Sod Cl (D5 1/2 Ns W/ 40 Meq/L Kcl) 1,000 mls @ 225 mls/hr IV ASDIRECTED [facility] Last Admin: 03/04/18 04:58 Dose: 225 mls/hr Iopamidol (Isovue-300 (61%)) 100 ml IVPUSH ONETIME ONE Stop: 03/04/18 04:18 Last Admin: 03/04/18 04:41 Dose: 100 ml Ketorolac Tromethamine (Toradol) 15 mg IVPUSH ONETIME ONE Stop: 03/04/18 05:36 Last Admin: 03/04/18 05:42 Dose: 15 mg Nitrofurantoin Macrocrystals (Macrobid) 100 mg PO ONETIME ONE Stop: 03/04/18 04:04 Last Admin: 03/04/18 04:24 Dose: 100 mg Potassium Chloride (Klor-Con M20) 60 meq PO ONETIME ONE Stop: 03/04/18 10:52
== END 2018-03-04 12:05 | disposition home or self-care (01) ==
LOC: VM.ED 02:40 → VM.MS 04:22 → UNDOADMOB 05:30
PROVIDERS: ADMIT Nurse Practitioner Family; ATTEND Nurse Practitioner Family
DX: K40.90 Unilateral inguinal hernia, without obstruction or gangrene, not specified as recurrent (principal); N39.0 Urinary tract infection, site not specified; E87.6 Hypokalemia; J44.9 Chronic obstructive pulmonary disease, unspecified
CPT/HCPCS: 36415; 74177; 80053; 80305-QW; 80349; 81001; 82550; 84132; 85025; 86140; 96361; 96365; 96366; 96375; 99285; A9270-GY; G0378; G0480; J1885; J3480; J7030; Q9967

== ENCOUNTER 2023-12-05 19:59 | Emergency (ER) | payer MEDICAID | END 2023-12-05 20:30 | disposition left against medical advice (07) | LOC: VM.ED 19:59 | DX: Z53.21 Procedure and treatment not carried out due to patient leaving prior to being seen by health care provider (principal) ==